=== PATIENT | female | born 1960 | race Caucasian/White ===

== ENCOUNTER → 2017-06-29 | Outpatient (CLI) | payer OTHER ==
[2012-05-02 11:57] VITALS: BP 138/63
--- NOTE | 2017-06-30 16:53 | MG ---
HISTORY: SCREENING Comparison: Multiple priors dating back to December 15, 2010 FINDINGS: Bilateral CC and MLO projections of the right and left breast were obtained. Scattered fibroglandula r tissue is seen to be present without significant interval change. No suspicious architectural dist ortion, mass or clustered microcalcifications can be observed to suggest malignancy. No skin thicken ing or nipple retraction is appreciated. No pathological lymphadenopathy can be identified. Benign- appearing calcifications are noted within the right and left breast. IMPRESSION: NO RADIOGRAPHIC EVIDENCE OF MALIGNANCY. ACR CATEGORY 2 - benign findings. FOLLOW-UP EXAM 1 YEAR. Diagnostic CAD was utilized and reviewed. * 0 (ZERO) - ASSESSMENT INCOMPLETE; ADDITIONAL IMAGING IS NEEDED. * 1/ (ONE) - NEGATIVE. * 2/II (TWO) - BENIGN FINDINGS. * 3/III (THREE) - PROBABLY BENIGN FINDING; SHORT INTERVAL FOLLOW-UP SUGGESTED. * 4/IV (FOUR) - SUSPICIOUS ABNORMALITY; BIOPSY SHOULD BE CONSIDERED. * 5/V - HIGHLY SUSPICIOUS OF MALIGNANCY; BIOPSY SHOULD BE PERFORMED. A NEGATIVE X-RAY REPORT SHOULD NOT DELAY BIOPSY IF A DOMINANT OR CLINICALLY SUSPICIOUS MASS IS PRESENT; 4 TO 8 PERCENT OF CANCERS ARE NOT IDENTIFIED BY X-RAY. A NEGA TIVE REPORT MAY REINFORCE THE CLINICAL IMPRESSION. ADENOSIS AND DENSE BREASTS MAY OBSCURE AN UNDERLY ING NEOPLASM. Reported By:
== END ==
LOC: RAD 13:43
PROVIDERS: ATTEND Specialist
DX: Z12.31 Encounter for screening mammogram for malignant neoplasm of breast (principal)
CPT/HCPCS: 77067

== ENCOUNTER 2020-01-20 12:47 | Inpatient (IN) ==
[2020-01-20 12:56] VITALS: BMI 38.2
--- NOTE | 2020-01-20 13:17 | DR.GENAD ---
HPI Time Seen Time Seen by Provider: 01/20/20 13:09 PCP Primary Care Physician: DR MARTINEZ Complaint/Symptoms Chief Complaint:: PT TESTED POSITVE FOR COVID ON TUESDAY. SINCE THEN SHE HAS HAD SEVERE DIARRHEA AND PROGRESSIVELY WORSENING GENERALIZED WEAKNESS. Self Treatment fo Chief Complaint: PT WAS STARTED ON PLAQUENIL, ZITHROMAX, AND ELIQUIS ON TUESDAY. Source History Provided: Patient Mode of Arrival Mode of Arrival: Ambulatory Timing Onset of Chief Complaint: 01/20/20 PMH PMH Past Medical History: Yes Past Medical History: Migraines Past Surgical History: Yes Surgical History: Ortho Surgery Family History History of Family Medical Conditions: Yes Family Medical History Comment: CVA Social History Does patient currently use any type of tobacco product: No Have you used tobacco products in the last 12 months: No Type of Tobacco Use: None Does any household member use tobacco: No Alcohol Use: None Do you use any recreational Drugs:: No Lives With: Family Lives Where: Home Infectious screening In the last 2 months have you had wt loss of >10#?: NO Have you had fever, night sweats or hemotysis?: No Have you traveled outside the country in the last 6 months?: No Isolation: Standard ROS Review of Systems Constitutional: No Symptoms Reported and See HPI Eyes: No Symptoms Reported and See HPI ENTM: No Symptoms Reported and See HPI Respiratoy: No Symptoms Reported and See HPI Cardiovascular: No Symptoms Reported and See HPI Gastrointestinal/Abdominal: No Symptoms Reported and See HPI Genitourinary: No Symptoms Reported and See HPI Neurological: No Symptoms Reported and See HPI Musculoskeletal: No Symptoms Reported and See HPI Integumentary: No Symptoms Reported and See HPI Hematologic/Lymphatic: No Symptoms Reported and See HPI Endocrine: No Symptoms Reported and See HPI Psychiatric: No Symptoms Reported and See HPI All Other Systems: Reviewed and Negative PE Vital Signs Vitals: Temperature 98.1 F Pulse Rate 94 Respiratory Rate 24 Blood Pressure [Left Arm] 138/63 Blood Pressure 129/68 O2 Sat by Pulse Oximetry 95 General Limitations: No Limitations General Appearance: Alert and In No Apparent Distress Head Head Exam: Normal Inspection Eyes Eye exam: Normal Appearance ENT ENT Exam: Normal Exam External Ear Exam: Normal External Inspection TM/Canal Exam: Bilateral: Normal Nose Exam: Normal Nose Exam Mouth Exam: Normal Inspection Throat Exam: Normal Inspection Neck Neck Exam: Normal Inspection Chest Chest Inspection: Normal Inspection Respiratory Respiratory Exam: Normal Lung Sounds Bilat Respiratory Exam: Bilateral: Clear to Auscultation Cardiovascular Cardiovascular Exam: Regular Rate and Normal Rhythm Abdominal Exam Abdominal Exam: Normal Inspection, Normal Bowel Sounds and Soft Extremities Extremities Exam: Normal Inspection Back Back Exam: Normal Inspection Neurologic Neurological Exam: Alert and Oriented X3 Psychiatric Psychiatric Exam: Normal Affect and Normal Mood Skin Skin Exam: Warm, Dry, Intact and Normal Color MDM Differential Diagnosis Differential Diagnosis: PNEUMONIA. DEHYDRATION, DIRRHEA, GASTROENTERITIS, COVID VIRUS POSITIVE. COURSE Treatment Treatment: SEE ORDERS. NS 1L IV BOLUS. ZOFRAN 4MG IV. Consultation Consultation Comments: DISCUSSED PATIENT WITH DR. TRINIDAD. HE WILL ADMIT PATIENT. Education/Counseling Education/Counseling: Patient Educated On: Diagnosis ROR Labs Reviewed Laboratory Results Reviewed?: Yes Result Diagrams: 01/20/20 13:30 01/20/20 13:30 Laboratory: WBC 6.9 X10^3/uL (3.6-10.0) 01/20/20 13:30 RBC 4.82 X10^6/uL (3.5-5.4) 01/20/20 13:30 Hgb 13.8 g/dL (12.0-16.0) 01/20/20 13:30 Hct 42.7 % (36.0-47.0) 01/20/20 13:30 MCV 88.5 fL (80.0-100.0) 01/20/20 13:30 MCH 28.6 pg (27.0-34.0) 01/20/20 13:30 MCHC 32.4 g/dL (33.0-35.0) L 01/20/20 13:30 RDW 14.3 % (11.6-16.5) 01/20/20 13:30 Plt Count 218 X10^3/uL (150.0-450.0) 01/20/20 13:30 MPV 8.0 fL (7.4-11.0) 01/20/20 13:30 Neut % (Auto) 75.5 % (42.0-75.0) H 01/20/20 13:30 Lymph % (Auto) 14.7 % (21.0-51.0) L 01/20/20 13:30 [place] % (Auto) 9.5 % (0.0-13.0) 01/20/20 13:30 Eos % (Auto) 0.0 % (0.9-2.9) L 01/20/20 13:30 Baso % (Auto) 0.3 % (0.2-1.0) 01/20/20 13:30 Neut # (Auto) 5.2 x10^3/uL (2.2-4.8) H 01/20/20 13:30 Lymph # (Auto) 1.0 X10^3/uL (1.3-2.9) L 01/20/20 13:30 [place] # (Auto) 0.7 x10^3/uL (0.3-0.8) 01/20/20 13:30 Eos # (Auto) 0.0 x10^3/uL (0.0-0.2) 01/20/20 13:30 Baso # (Auto) 0.0 X10^3/uL (0.0-0.1) 01/20/20 13:30 Absolute Nucleated RBC 0.1 /100WBC 01/20/20 13:30 Sample Site Lrad 01/20/20 13:47 ABG pH 7.460 (7.35-7.45) H 01/20/20 13:47 ABG pCO2 40.0 mmHg (35.0-45.0) 01/20/20 13:47 ABG pO2 69.0 mmHg (80.0-100.0) L 01/20/20 13:47 ABG HCO3 28.4 mmol/L (22-26) H 01/20/20 13:47 ABG O2 Saturation 95.0 % (90-100) 01/20/20 13:47 ABG Base Excess 4.2 mmol/L (-2.0-2.0) H 01/20/20 13:47 Alberto Test Pos 01/20/20 13:47 A-a Gradient 31.0 mmHg 01/20/20 13:47 FiO2 21.0 01/20/20 13:47 Blood Gas Comments Pt zak well elj cdn 01/20/20 13:47 Sodium 138 mmol/L (136-145) 01/20/20 13:30 Corrected Sodium TNP 01/20/20 13:30 Potassium 4.1 mmol/L (3.5-5.1) 01/20/20 13:30 Chloride 98 mmol/L (98-107) 01/20/20 13:30 Carbon Dioxide 30.6 mmol/L (21-32) 01/20/20 13:30 BUN 10 mg/dL (7-18) 01/20/20 13:30 Creatinine 0.96 mg/dL (0.55-1.02) 01/20/20 13:30 Est GFR (MDRD) Af Amer > 60 (>60) 01/20/20 13:30 Est GFR (MDRD) Non-Af > 60 (>60) 01/20/20 13:30 Glucose 98 mg/dL (65-99) 01/20/20 13:30 Calcium 8.6 mg/dL (8.5-10.1) 01/20/20 13:30 Corrected Calcium TNP 01/20/20 13:30 Total Bilirubin 0.40 mg/dL (0.2-1.0) 01/20/20 13:30 AST 24 Units/L (15-37) 01/20/20 13:30 ALT 28 Units/L (12-78) 01/20/20 13:30 Alkaline Phosphatase 81 Units/L (46-116) 01/20/20 13:30 Total Protein 7.9 g/dL (6.4-8.2) 01/20/20 13:30 Albumin 3.4 g/dL (3.4-5.0) 01/20/20 13:30 Globulin 4.5 g/dL (2.5-4.5) 01/20/20 13:30 Albumin/Globulin Ratio 0.8 Ratio (1.1-2.1) L 01/20/20 13:30 Amylase 45 Units/L (25-115) 01/20/20 13:30 Lipase 174 Units/L (73-393) 01/20/20 13:30 XRAY XRAY Interpreted by: Radiologist (REPORT NOTED AND DISCUSSED WITH PATIENT.) and Self EKG Rate: 87 [place]: LAD Rhythm: NSR Block: None Hypertrophy: LAE ST: Nonsp Opioid Opioid Risk Tool Age (Jh box if 16-45): No Total: 0 Total Score Risk Category: Low Risk Copyright: [facility] predicting aberrant behaviors Diagnosis Discharge Problem: Vomiting and diarrhea, Acute dehydration Pneumonia Qualifiers: Pneumonia type: due to unspecified organism Laterality: bilateral Lung location: lower lobe of lung Qualified Code(s): J18.9 - Pneumonia, unspecified organism Instructions Forms: Precautions for COVID19 Patient Portal Social Distancing
[2020-01-20] MEDS ORDERED: NS 1000 ML 1,000 ML IV ONE (13:24)
[2020-01-20] MEDS ORDERED: ZOFRAN INJ 4 MG VIAL IVP ONE (13:24)
[2020-01-20] MEDS ORDERED: ZOFRAN INJ 4 MG VIAL ONE (13:26)
[2020-01-20] MEDS ORDERED: NS 1000 ML 1,000 ML ONE (13:26)
[2020-01-20 13:44] LABS: BASOPHILS % (AUTO) 0.3 % (0.2-1.0); HEMATOCRIT 42.7 % (36.0-47.0); HEMOGLOBIN 13.8 g/dL (12.0-16.0); LYMPHOCYTES % (AUTO) 14.7 % (21.0-51.0); MEAN CORPUSCULAR HEMOGLOBIN 28.6 pg (27.0-34.0); MEAN CORPUSCULAR HGB CONC 32.4 g/dL (33.0-35.0); MEAN CORPUSCULAR VOLUME 88.5 fL (80.0-100.0); MONOCYTES # (AUTO) 0.7 x10^3/uL (0.3-0.8); MONOCYTES % (AUTO) 9.5 % (0.0-13.0); NEUTROPHILS # (AUTO) 5.2 x10^3/uL (2.2-4.8); NEUTROPHILS % (AUTO) 75.5 % (42.0-75.0); PLATELET COUNT 218 X10^3/uL (150.0-450.0); RED BLOOD COUNT 4.82 X10^6/uL (3.5-5.4); RED CELL DISTRIBUTION WIDTH 14.3 % (11.6-16.5); WHITE BLOOD COUNT 6.9 X10^3/uL (3.6-10.0)
[2020-01-20 13:55] LABS: ABG ALLEN TEST POS; ABG BASE EXCESS 4.2 mmol/L (-2.0-2.0); ABG HCO3 28.4 mmol/L (22-26)
[2020-01-20 13:57] LABS: ALANINE AMINOTRANSFERASE 28 Units/L (12-78); ALBUMIN 3.4 g/dL (3.4-5.0); ALKALINE PHOSPHATASE 81 Units/L (46-116); AMYLASE 45 Units/L (25-115); ASPARTATE AMINO TRANSFERASE 24 Units/L (15-37); BLOOD UREA NITROGEN 10 mg/dL (7-18); CALCIUM 8.6 mg/dL (8.5-10.1); CARBON DIOXIDE 30.6 mmol/L (21-32); CHLORIDE 98 mmol/L (98-107); CREATININE 0.96 mg/dL (0.55-1.02); LIPASE 174 Units/L (73-393); SODIUM 138 mmol/L (136-145); TOTAL PROTEIN 7.9 g/dL (6.4-8.2); eGFR NON BLACK RACES > 60 (>60)
--- NOTE | 2020-01-20 14:18 | RAD ---
HISTORYAbd. pain PT TESTED POSITVE FOR COVID ON TUESDAY. SINCE THEN SHE HAS HAD SEVERE DIARRHEA AND PROGRESSIVELY WORSENING GENERALIZED WEAKNESS..brOrtho sxSTUDYACUTE ABDOMEN SERIESCOMPARISONNoneFINDINGSThe left ventricle is mildly enlarged. The pulmonary vessels are slightly engorged centrally. The lungs are hypoinflated with some hazy bibasilar linear opacities. No effusion is seen.Flat plate and upright evaluation of the abdomen demonstrates a [normal bowel gas pattern]. There is no pneumoperitoneum. No pathological soft tissue mass or calcification can be observed. The bony structures are grossly intact. There are surgical clips along the right upper quadrant. There is no free air.IMPRESSIONMild left ventricular enlargement with mild bibasilar atelectasis or scarring.Status post cholecystectomy with a nonspecific gas pattern.2. [No evidence for acute abdominal pathology identified.]Electronically signed by: AFRICA MARTINO (Jan 20, 2020 14:17:06)
[2020-01-20 16:04] LABS: APPEARANCE,URINE SLIGHTLY HAZY (CLEAR); BILIRUBIN,URINE NEGATIVE (NEGATIVE); BLOOD/HEMOGLOBIN,URINE 1+ (NEGATIVE); COLOR,URINE YELLOW (YELLOW); GLUCOSE, URINE NEGATIVE (NEGATIVE); KETONES,URINE NEGATIVE (NEGATIVE); NITRITES,URINE NEGATIVE (NEGATIVE); PROTEIN,URINE NEGATIVE (NEGATIVE)
[2020-01-20 16:05] LABS: BACTERIA,URINE 2+ /HPF (NEGATIVE); LEUKOCYTE ESTERASE ,URINE NEGATIVE (NEGATIVE); RBC,URINE 0-2 /HPF (0-3); SQUAMOUS EPITHELIAL CELL,UR RARE /HPF (NEGATIVE); UROBILINOGEN,URINE NORMAL (NORMAL)
[2020-01-20] MEDS ORDERED: REMDESIVIR 200 MG in NS 250 ML IV 250 ML IV SCH (16:11)
[2020-01-20] MEDS: NS 1000 ML 1,000 ML IV SCH (16:21)
[2020-01-20 16:29] LABS: LACTIC ACID 0.7 mmol/L (0.4-2.0)
[2020-01-20] MEDS ORDERED: DUONEB 0.5 MG/3 MG (3 mL) NEB ONE (19:26)
[2020-01-20] MEDS ORDERED: PULMICORT NEB TX 0.5 MG NEB ONE (19:27)
[2020-01-20] MEDS ORDERED: LOVENOX INJ 30 MG SYR SC SCH (21:00)
[2020-01-20] MEDS: ASCORBIC ACID INJ MULTI-DOSE VIAL 1,500 MG in NS 100 ML IV 100 ML IV SCH (21:00)
[2020-01-20] MEDS ORDERED: PLAQUENIL PO SCH (21:00)
[2020-01-20] MEDS: ZINC SULFATE PO SCH (21:00)
[2020-01-20] MEDS: DUONEB 0.5 MG/3 MG (3 mL) NEB SCH (21:25)
[2020-01-20] MEDS: PULMICORT NEB TX 0.5 MG NEB SCH (21:25)
[2020-01-20] MEDS ORDERED: CATAPRES TAB 0.1 MG ONE (21:46)
[2020-01-20] MEDS ORDERED: ELIQUIS ONE (21:46)
[2020-01-20] MEDS: CATAPRES TAB 0.1 MG PO SCH (22:30)
[2020-01-20] MEDS: ELIQUIS PO SCH (22:30)
[2020-01-21] MEDS: ASCORBIC ACID INJ MULTI-DOSE VIAL 1,500 MG in NS 100 ML IV 100 ML IV SCH (03:13)
[2020-01-21 04:15] LABS: ABG ALLEN TEST POS; ABG BASE EXCESS 5.3 mmol/L (-2.0-2.0); ABG HCO3 29.9 mmol/L (22-26)
[2020-01-21] MEDS: DUONEB 0.5 MG/3 MG (3 mL) NEB SCH ×3 (05:13→21:00)
[2020-01-21 05:24] LABS: BASOPHILS % (AUTO) 0.3 % (0.2-1.0); HEMATOCRIT 37.6 % (36.0-47.0); HEMOGLOBIN 12.3 g/dL (12.0-16.0); LYMPHOCYTES # (AUTO) 1.5 X10^3/uL (1.3-2.9); LYMPHOCYTES % (AUTO) 19.9 % (21.0-51.0); MEAN CORPUSCULAR HEMOGLOBIN 28.8 pg (27.0-34.0); MEAN CORPUSCULAR HGB CONC 32.7 g/dL (33.0-35.0); MEAN CORPUSCULAR VOLUME 88.1 fL (80.0-100.0); MEAN PLATELET VOLUME 8.4 fL (7.4-11.0); MONOCYTES # (AUTO) 0.7 x10^3/uL (0.3-0.8); MONOCYTES % (AUTO) 9.1 % (0.0-13.0); NEUTROPHILS # (AUTO) 5.2 x10^3/uL (2.2-4.8); NEUTROPHILS % (AUTO) 70.7 % (42.0-75.0); PLATELET COUNT 210 X10^3/uL (150.0-450.0); RED BLOOD COUNT 4.27 X10^6/uL (3.5-5.4); RED CELL DISTRIBUTION WIDTH 14.5 % (11.6-16.5); WHITE BLOOD COUNT 7.3 X10^3/uL (3.6-10.0)
[2020-01-21 05:37] LABS: ALANINE AMINOTRANSFERASE 27 Units/L (12-78); ALKALINE PHOSPHATASE 68 Units/L (46-116); ASPARTATE AMINO TRANSFERASE 22 Units/L (15-37); BLOOD UREA NITROGEN 8 mg/dL (7-18); CALCIUM 8.2 mg/dL (8.5-10.1); CARBON DIOXIDE 27.9 mmol/L (21-32); CHLORIDE 100 mmol/L (98-107); COR NA(FOR HYPERGLY) 135 mmol/L (136-145); CREATININE 0.75 mg/dL (0.55-1.02); SODIUM 135 mmol/L (136-145); TOTAL PROTEIN 7.1 g/dL (6.4-8.2); eGFR NON BLACK RACES > 60 (>60)
[2020-01-21 05:53] LABS: ERYTHROCYTE SEDIMENTATION RATE 44 MM/HOUR (0-20)
--- NOTE | 2020-01-21 06:13 | RAD ---
[id number], SOBSTUDYCHEST, 1 VIEWCOMPARISONNoneFINDINGSThe trachea is midline. The cardiac silhouette is mildly enlarged.. Patchy bibasilar infiltrates. The upper lung handley are clear. No pleural effusion or pneumothorax. The bony thorax be.IMPRESSIONPatchy bibasilar infiltrates consistent with multifocal pneumoniaElectronically signed by: Curtis Paredes (Jan 21, 2020 06:11:34)
[2020-01-21] MEDS: NS 1000 ML 1,000 ML IV SCH ×2 (06:21→15:31)
[2020-01-21] MEDS: PULMICORT NEB TX 0.5 MG NEB SCH ×2 (08:05→21:00)
[2020-01-21] MEDS ORDERED: ZOFRAN INJ 4 MG VIAL ONE (08:17)
[2020-01-21] MEDS: ZOFRAN INJ 4 MG VIAL IVP PRN ×2 (08:35→20:59)
--- NOTE | 2020-01-21 08:42 | DR.H&P ---
H&P - History & Physical for Day of: H&P Date: 01/20/20 - Chief Complaint Chief Complaint: WEAKNESS, SOB, NAUSEA, DIARRHEA - History of Present Illness History of Present Illness: IS A 59 YEAR OLD PATIENT OF OURS. SHE PRESENTED TO THE ER WITH COMPLAINTS OF SEVERE WEAKNESS, SHORTNESS OF BREATH, NAUSEA, AND DIARRHEA X 1 WEEK. SHE HAD A POSITIVE COVID-19 TEST ON 01/15/20. SHE WAS STARTED ON PLAQUENIL, ZITHROMAX, AND ELIQUIS ON 01/14. SHE REPORTS WORSENING OF SYMPTOMS DESPITE COMPLIANCE WITH HER MEDICATIONS. HER PMH INCLUDES MIGRAINES, HTN, DYSLIPIDEMIA, AND DEPRESSION. ON ARRIVAL TO THE ER, VITALS WERE 98.1-109-24-91%RA-123/81. LABS WERE OBTAINED. ABNORMAL LAB VALUES INCLUDE THE FOLLOWING: FERRITIN 264, CRP 32.0. URINALYSIS REVEALED: WBC 0-2, RBC 0-2, LEUKOCYTES NEGATIVE, BACTERIA 2+, OCCULT BLOOD 1+. ABG REVEALED: PH 7.460, PC02 40.0, P02 69, HC03 28.4, 02 SAT 95.0, BASE EXCESS 4.2, FI02 21.0. URINE AND BLOOD CULTURES ARE PENDING. AN ABDOMINAL SERIES WAS OBTAINED AND REVEALED: Mild left ventricular enlargement with mild bibasilar atelectasis or scarring. Status post cholecystectomy with a nonspecific gas pattern. 2. No evidence for acute abdominal pathology identified. EKG REVEALED: SINUS RHYTHM WITH HR 87. SHE WAS GIVEN A NORMAL SALINE BOLUS, ZOFRAN 4MG IV X 1, AND REMDESIVIR 200MG IV X 1 DOSE IN THE ER. SHE WAS ADMITTED FOR FURTHER EVALUATION AND TREATMENT OF PNEUMONIA DUE TO COVID-19, NAUSEA/VOMITING, AND DIARRHEA. SHE WAS STARTED ON REMDESIVIR 100MG IV DAILY, LEVAQUIN 500MG IV DAILY, SOLU-MEDROL 40MG IV Q8H, ZOFRAN 4MG IV Q6H PRN, VSL #3 2 TABS DAILY, DUONEBS TID, PULMICORT NEBS BID, TRICOR 160MG PO DAILY, ZINC 220MG PO BID, ELIQUIS 2.5MG PO BID, CATAPRES 0.1MG PO HS, VITAMIN D 50,000 UNITS PO DAILY. OTHERWISE, WE PLAN TO FOLLOW UP WITH AM LABS, CHEST XRAY, ABG, AND CONTINUE TO MONITOR. - Past Medical History Past Medical History: Depression, Dyslipidemia, Migraines, Hypertension - Past Surgical History Surgical History: Cholecystectomy, Ortho Surgery - Family History Family Medical History: Cancer, [place] - Social History Does patient currently use any type of tobacco product: No Have you used tobacco products in the last 12 months: No Type of Tobacco Use: None Does any household member use tobacco: No Alcohol Use: None Drug Use: None - Medications Home Medications: codeine Allergy (Verified 01/20/20 15:07) CONTINUE taking the following medications apixaban [Eliquis] 2.5 mg PO BID 01/20/20 [History] clonidine HCl 0.1 mg PO HS 01/20/20 [History] hydroxychloroquine 200 mg PO BID 01/20/20 [History] lisinopril 2.5 mg PO DAILY 01/20/20 [History] methylprednisolone 4 mg PO BID 01/20/20 [History] oxybutynin chloride 15 mg PO DAILY 01/20/20 [History] rosuvastatin 10 mg PO HS 01/20/20 [History] venlafaxine 75 mg PO QAM 01/20/20 [History] - Review of Systems Constitutional: Weakness Eyes: No Symptoms Reported ENT: No Symptoms Reported Respiratory: Shortness of Breath Cardiovascular: No Symptoms Reported Gastrointestinal: Nausea, Vomiting, Diarrhea Genitourinary: No Symptoms Reported Musculoskeletal: No Symptoms Reported Skin: No Symptoms Reported Neurological: Weakness - Physical Exam Vital Signs: Temperature 98.5 F Pulse Rate [Apical] 112 Pulse Rate 97 Respiratory Rate 22 Blood Pressure [Left Arm] 112/60 Blood Pressure 129/68 O2 Sat by Pulse Oximetry 95 Oriented: Normal Eyes: Normal Ear: Normal Nose: Normal Throat: Normal Respiratory: Diminished Throughout Cardiovascular: Normal : Normal Auscultation: Bowel Sounds: Normal Palpation: Normal Tenderness: Normal Skin: Normal Musculoskeletal: Normal Psychiatric: Normal Mood Description: Calm Affect: Normal Speech Pattern: Clear - Assessment/Plan (1) Pneumonia due to 2019 novel coronavirus Status: Acute Plan: ADMIT, SUPPLEMENTAL OXYGEN, REMDESIVIR 100MG IV DAILY, LEVAQUIN 500MG IV DAILY, SOLU-MEDROL 40MG IV Q8H, ZOFRAN 4MG IV Q6H PRN, VSL #3 2 TABS DAILY, DUONEBS TID, PULMICORT NEBS BID, TRICOR 160MG PO DAILY, ZINC 220MG PO BID, ELIQUIS 2.5MG PO BID, CATAPRES 0.1MG PO HS, VITAMIN D 50,000 UNITS PO DAILY. (2) Vomiting and diarrhea Status: Acute - Allergies Allergies/Adverse Reactions: Allergies Allergy/AdvReac Type Severity Reaction Status Date / Time codeine Allergy Verified 01/20/20 15:07
[2020-01-21] MEDS: ELIQUIS PO SCH ×2 (08:52→20:58)
[2020-01-21] MEDS: ZINC SULFATE PO SCH ×2 (08:53→21:00)
[2020-01-21] MEDS: VSL#3 PO SCH (08:53)
[2020-01-21] MEDS: REMDESIVIR 100 MG in NS 250 ML IV 250 ML IV SCH (08:53)
[2020-01-21] MEDS: TRICOR TAB 160 MG PO SCH (08:54)
[2020-01-21] MEDS: SOLU-Medrol 40 MG VIAL IVP SCH ×3 (08:54→21:00)
[2020-01-21] MEDS ORDERED: VITAMIN D (1.25MG) PO SCH (09:00)
[2020-01-21] MEDS ORDERED: VITAMIN A PO SCH (09:00)
[2020-01-21] MEDS ORDERED: DECADRON TAB PO SCH (09:00)
[2020-01-21] MEDS: LEVAQUIN PREMIX IV 500 MG 500 MG/100 ML BAG IV SCH (10:08)
[2020-01-21] MEDS ORDERED: K-RIDER 10 MEQ/NS 100 ML 10 MEQ/100 ML BAG IV PRN (20:16)
[2020-01-21] MEDS ORDERED: KLOR-CON PO PRN (20:16)
[2020-01-21] MEDS ORDERED: POTASSIUM CHLORIDE LIQ 20 MEQ UDC PO PRN (20:16)
[2020-01-21] MEDS ORDERED: POTASSIUM CHL 60 MEQ/NS 0.45% 500 ML IV PRN (20:16)
[2020-01-21] MEDS ORDERED: K-DUR TAB 20 MEQ PO PRN (20:16)
[2020-01-21] MEDS ORDERED: POTASSIUM CHL 40 MEQ/NS 0.45% 500 ML IV PRN (20:16)
[2020-01-21] MEDS ORDERED: MICRO K EXTEN CAP 10 MEQ PO PRN (20:16)
[2020-01-21] MEDS ORDERED: MAGNESIUM SULFATE 1 GRAM/100 mL PREMIX 1 GM/100 ML BAG IV PRN (20:16)
[2020-01-21] MEDS: CATAPRES TAB 0.1 MG PO SCH (20:58)
[2020-01-21] MEDS ORDERED: CATAPRES TAB 0.1 MG PO SCH (21:00)
[2020-01-22] MEDS: ZOFRAN INJ 4 MG VIAL IVP PRN ×5 (04:30→22:32)
[2020-01-22 05:18] LABS: BASOPHILS % (AUTO) 0.2 % (0.2-1.0); HEMATOCRIT 38.6 % (36.0-47.0); HEMOGLOBIN 12.8 g/dL (12.0-16.0); LYMPHOCYTES # (AUTO) 0.8 X10^3/uL (1.3-2.9); LYMPHOCYTES % (AUTO) 18.2 % (21.0-51.0); MEAN CORPUSCULAR HEMOGLOBIN 29.1 pg (27.0-34.0); MEAN CORPUSCULAR HGB CONC 33.2 g/dL (33.0-35.0); MEAN CORPUSCULAR VOLUME 87.6 fL (80.0-100.0); MEAN PLATELET VOLUME 7.6 fL (7.4-11.0); MONOCYTES # (AUTO) 0.2 x10^3/uL (0.3-0.8); MONOCYTES % (AUTO) 5.7 % (0.0-13.0); NEUTROPHILS # (AUTO) 3.2 x10^3/uL (2.2-4.8); NEUTROPHILS % (AUTO) 75.9 % (42.0-75.0); PLATELET COUNT 230 X10^3/uL (150.0-450.0); RED BLOOD COUNT 4.41 X10^6/uL (3.5-5.4); RED CELL DISTRIBUTION WIDTH 14.5 % (11.6-16.5); WHITE BLOOD COUNT 4.2 X10^3/uL (3.6-10.0)
[2020-01-22 05:32] LABS: ALANINE AMINOTRANSFERASE 26 Units/L (12-78); ALKALINE PHOSPHATASE 68 Units/L (46-116); ASPARTATE AMINO TRANSFERASE 19 Units/L (15-37); BLOOD UREA NITROGEN 8 mg/dL (7-18); CALCIUM 8.8 mg/dL (8.5-10.1); CARBON DIOXIDE 31.2 mmol/L (21-32); CHLORIDE 103 mmol/L (98-107); COR CA(FOR HYPOALB) 9.6 mg/dL (8.5-10.1); COR NA(FOR HYPERGLY) 142 mmol/L (136-145); MAGNESIUM 2.3 mg/dL (1.7-2.9); SODIUM 139 mmol/L (136-145); TOTAL PROTEIN 7.2 g/dL (6.4-8.2); eGFR NON BLACK RACES > 60 (>60)
[2020-01-22] MEDS: SOLU-Medrol 40 MG VIAL IVP SCH ×3 (05:39→21:08)
[2020-01-22] MEDS: DUONEB 0.5 MG/3 MG (3 mL) NEB SCH ×3 (05:40→21:15)
--- NOTE | 2020-01-22 06:21 | RAD ---
HISTORYCOVID, SOBSTUDYCHEST, 1 [id number] view of the chestFINDINGSCardiac and mediastinal contours appear stable. Stable basilar predominant patchy opacities. Blunted costophrenic sulci are present. No pneumothorax.IMPRESSIONNo significant change.Electronically signed by: Bradly Palmer (Jan 22, 2020 06:19:38)
[2020-01-22] MEDS: ELIQUIS PO SCH ×2 (08:28→20:08)
[2020-01-22] MEDS: TRICOR TAB 160 MG PO SCH (08:29)
[2020-01-22] MEDS: VITAMIN D3 125 mcg (5,000 UNITS) PO SCH (08:29)
[2020-01-22] MEDS: LEVAQUIN PREMIX IV 500 MG 500 MG/100 ML BAG IV SCH (08:29)
[2020-01-22] MEDS: VSL#3 PO SCH (08:29)
[2020-01-22] MEDS: ZINC SULFATE PO SCH ×2 (08:30→21:00)
[2020-01-22] MEDS ORDERED: TYLENOL 325 MG TAB PO ONE (08:55)
[2020-01-22] MEDS: PULMICORT NEB TX 0.5 MG NEB SCH ×2 (08:58→21:15)
[2020-01-22] MEDS: TYLENOL 325 MG TAB PO PRN (08:59)
[2020-01-22] MEDS ORDERED: FORTAZ or TAZICEF VIAL INJ 1 G in NS 100 ML IV + SPIKE MINIBAG* 100 ML IV SCH (09:00)
[2020-01-22] MEDS ORDERED: VITAMIN A PO SCH (09:00)
[2020-01-22] MEDS ORDERED: INDERAL TAB 10 MG PO SCH (10:00)
[2020-01-22] MEDS: REMDESIVIR 100 MG in NS 250 ML IV 250 ML IV SCH (10:32)
[2020-01-22] MEDS: ZESTRIL TAB 5 MG PO SCH (10:32)
[2020-01-22] MEDS: PATIENT'S HOME MEDICATION PO SCH ×2 (10:46→20:09)
[2020-01-22] MEDS: FORTAZ or TAZICEF VIAL INJ 1 G in NS 50 ML IV + SPIKE MINIBAG* 50 ML IV SCH ×2 (14:10→21:07)
[2020-01-22] MEDS: TORADOL 30 MG VIAL IVP PRN ×2 (14:39→20:09)
--- NOTE | 2020-01-22 19:07 | PCM.PROG ---
Progress Note - Progress Note for Day of Date of Exam: 01/22/20 - Subjective Subjective: IS BEING TREATED FOR PNEUMONIA DUE TO COVID-19 AND NAUSEA/VOMITING. TODAY, SHE IS ALERT AND ORIENTED, LYING IN BED ON MORNING ROUNDS. SHE CONTINUES WITH COMPLAINTS OF WEAKNESS AND NAUSEA THIS MORNING. SHE DOES REPORT SHORTNESS OF BREATH AT TIMES. SHE IS CURRENTLY UTILIZING OXYGEN VIA NASAL CANNULA AT 2 LITERS/MIN. SHE DENIES SIGNIFICANT IMPROVEMENT IN SYMPTOMS SINCE ADMISSION. ON EXAMINATION, HEART IS REGULAR IN RATE AND RHYTHM. BILATERAL LUNGS ARE NOTED WITH DIMINISHED LUNG SOUNDS THROUGHOUT. ABDOMEN IS ROUND, SOFT, AND NON-TENDER WITH NORMAL BOWEL SOUNDS NOTED IN ALL QUADRANTS. HER VITALS THIS MORNING ARE: 97.8-96-25-95%NC-136/62. LABS WERE OBTAINED. ABNORMAL LAB VALUES IN CLUDE THE FOLLOWING: GLUCOSE 238, FERRITIN 305, CRP 45.50, ALBUMIN 3.0. CHEST XRAY REVEALED: Cardiac and mediastinal contours appear stable. Stable basilar predominant patchy opacities. Blunted costophrenic sulci are present. No pneumothorax. SHE IS CURRENTLY RECEIVING REMDESIVIR 100MG IV DAILY, LEVAQUIN 500MG IV DAILY, SOLU-MEDROL 40MG IV Q8H, ZOFRAN 4MG IV Q6H PRN, VSL #3 2 TABS DAILY, DUONEBS TID, PULMICORT NEBS BID, TRICOR 160MG PO DAILY, ZINC 220MG PO BID, ELIQUIS 2.5MG PO BID, CATAPRES 0.1MG PO HS, VITAMIN D 50,000 UNITS PO DAILY. WE WILL RESUME HER HOME MEDICATIONS TODAY. OTHERWISE, WE PLAN TO FOLLOW UP WITH AM LABS, CHEST XRAY, AND CONTINUE TO MONITOR. - Past Medical Family Social History Past Med/Fam/Surg Hx: No changes since H&P Allergies: Allergies codeine Allergy (Verified 01/20/20 15:07) - Review of Systems ROS: No change since H&P - Vital Signs and I&O's Vital Signs: Temperature 97.5 F Pulse Rate [Apical] 78 Pulse Rate 84 Respiratory Rate 20 Blood Pressure [Left Arm] 138/63 Blood Pressure 129/68 O2 Sat by Pulse Oximetry 97 Intake and Output: Intake & Output 01/20/20 01/21/20 01/22/20 01/23/20 11:59 11:59 11:59 11:59 Intake Total 1945 1123 / 1123 Balance 1945 1123 / 1123 - Physical Exam Oriented: Normal Eyes: Normal Ear: Normal Nose: Normal Throat: Normal Respiratory: Generalized, Diminished Cardiovascular: Normal : Normal Auscultation: Bowel Sounds: Normal Palpation: Normal Tenderness: Normal Skin: Normal Musculoskeletal: Normal Psychiatric: Normal Mood Description: Calm Affect: Normal Speech Pattern: Clear - Laboratory and Diagnostics Result Diagrams: 01/22/20 04:53 01/22/20 04:53 Labs: 01/20/20 15:55 Blood Blood Culture - Preliminary 01/20/20 15:49 Blood Blood Culture - Preliminary 01/20/20 15:12 Urine,Clean Catch Urine Culture - Preliminary Escherichia Coli Laboratory WBC 4.2 X10^3/uL (3.6-10.0) 01/22/20 04:53 RBC 4.41 X10^6/uL (3.5-5.4) 01/22/20 04:53 Hgb 12.8 g/dL (12.0-16.0) 01/22/20 04:53 Hct 38.6 % (36.0-47.0) 01/22/20 04:53 MCV 87.6 fL (80.0-100.0) 01/22/20 04:53 MCH 29.1 pg (27.0-34.0) 01/22/20 04:53 MCHC 33.2 g/dL (33.0-35.0) 01/22/20 04:53 RDW 14.5 % (11.6-16.5) 01/22/20 04:53 Plt Count 230 X10^3/uL (150.0-450.0) 01/22/20 04:53 MPV 7.6 fL (7.4-11.0) 01/22/20 04:53 Neut % (Auto) 75.9 % (42.0-75.0) H 01/22/20 04:53 Lymph % (Auto) 18.2 % (21.0-51.0) L 01/22/20 04:53 [place] % (Auto) 5.7 % (0.0-13.0) 01/22/20 04:53 Eos % (Auto) 0.0 % (0.9-2.9) L 01/22/20 04:53 Baso % (Auto) 0.2 % (0.2-1.0) 01/22/20 04:53 Neut # (Auto) 3.2 x10^3/uL (2.2-4.8) 01/22/20 04:53 Lymph # (Auto) 0.8 X10^3/uL (1.3-2.9) L 01/22/20 04:53 [place] # (Auto) 0.2 x10^3/uL (0.3-0.8) L 01/22/20 04:53 Eos # (Auto) 0.0 x10^3/uL (0.0-0.2) 01/22/20 04:53 Baso # (Auto) 0.0 X10^3/uL (0.0-0.1) 01/22/20 04:53 Absolute Nucleated RBC 0.0 /100WBC 01/22/20 04:53 ESR 44 MM/HOUR (0-20) H 01/21/20 04:26 Sample Site Rr 01/21/20 04:08 ABG pH 7.450 (7.35-7.45) 01/21/20 04:08 ABG pCO2 43.0 mmHg (35.0-45.0) 01/21/20 04:08 ABG pO2 68.0 mmHg (80.0-100.0) L 01/21/20 04:08 ABG HCO3 29.9 mmol/L (22-26) H 01/21/20 04:08 ABG O2 Saturation 94.0 % (90-100) 01/21/20 04:08 ABG Base Excess 5.3 mmol/L (-2.0-2.0) H 01/21/20 04:08 Alberto Test Pos 01/21/20 04:08 A-a Gradient 78.0 mmHg 01/21/20 04:08 FiO2 28.0 01/21/20 04:08 Blood Gas Comments Danika well ae 01/21/20 04:08 Sodium 139 mmol/L (136-145) 01/22/20 04:53 Corrected Sodium 142 mmol/L (136-145) 01/22/20 04:53 Potassium 4.4 mmol/L (3.5-5.1) 01/22/20 04:53 Chloride 103 mmol/L (98-107) 01/22/20 04:53 Carbon Dioxide 31.2 mmol/L (21-32) 01/22/20 04:53 BUN 8 mg/dL (7-18) 01/22/20 04:53 Creatinine 0.80 mg/dL (0.55-1.02) 01/22/20 04:53 Est GFR (MDRD) Af Amer > 60 (>60) 01/22/20 04:53 Est GFR (MDRD) Non-Af > 60 (>60) 01/22/20 04:53 Glucose 238 mg/dL (65-99) H 01/22/20 04:53 Lactic Acid 0.7 mmol/L (0.4-2.0) 01/20/20 15:49 Calcium 8.8 mg/dL (8.5-10.1) 01/22/20 04:53 Corrected Calcium 9.6 mg/dL (8.5-10.1) 01/22/20 04:53 Magnesium 2.3 mg/dL (1.7-2.9) 01/22/20 04:53 Ferritin 305 ng/mL (8-252) H 01/22/20 04:53 Total Bilirubin 0.20 mg/dL (0.2-1.0) 01/22/20 04:53 AST 19 Units/L (15-37) 01/22/20 04:53 ALT 26 Units/L (12-78) 01/22/20 04:53 Alkaline Phosphatase 68 Units/L (46-116) 01/22/20 04:53 C-Reactive Protein 45.50 mg/L (0-3.0) H 01/22/20 04:53 Total Protein 7.2 g/dL (6.4-8.2) 01/22/20 04:53 Albumin 3.0 g/dL (3.4-5.0) L 01/22/20 04:53 Globulin 4.2 g/dL (2.5-4.5) 01/22/20 04:53 Albumin/Globulin Ratio 0.7 Ratio (1.1-2.1) L 01/22/20 04:53 Amylase 45 Units/L (25-115) 01/20/20 13:30 Lipase 174 Units/L (73-393) 01/20/20 13:30 Specimen Type Clean catch urine 01/20/20 15:12 Urine Color Yellow (YELLOW) 01/20/20 15:12 Urine Appearance Slightly hazy (CLEAR) 01/20/20 15:12 Urine pH 6.0 (5.0 - 8.0) 01/20/20 15:12 Ur Specific [place] 1.010 (1.000-1.030) 01/20/20 15:12 Urine Protein Negative (NEGATIVE) 01/20/20 15:12 Urine Glucose (UA) Negative (NEGATIVE) 01/20/20 15:12 Urine Ketones Negative (NEGATIVE) 01/20/20 15:12 Urine Occult Blood 1+ (NEGATIVE) 01/20/20 15:12 Urine Nitrite Negative (NEGATIVE) 01/20/20 15:12 Urine Bilirubin Negative (NEGATIVE) 01/20/20 15:12 Urine Urobilinogen Normal (NORMAL) 01/20/20 15:12 Ur Leukocyte Esterase Negative (NEGATIVE) 01/20/20 15:12 Urine RBC 0-2 /HPF (0-3) 01/20/20 15:12 Urine WBC 0-2 /HPF (0-5) 01/20/20 15:12 Ur Squamous Epith Cells Rare /HPF (NEGATIVE) 01/20/20 15:12 Urine Bacteria 2+ /HPF (NEGATIVE) 01/20/20 15:12 Ur Culture Indicated? Yes/culture set up 01/20/20 15:12 - Plan (1) Pneumonia due to 2019 novel coronavirus Status: Acute Plan: SUPPLEMENTAL OXYGEN, REMDESIVIR 100MG IV DAILY, LEVAQUIN 500MG IV DAILY, SOLU-MEDROL 40MG IV Q8H, ZOFRAN 4MG IV Q6H PRN, VSL #3 2 TABS DAILY, DUONEBS TID, PULMICORT NEBS BID, TRICOR 160MG PO DAILY, ZINC 220MG PO BID, ELIQUIS 2.5MG PO BID, CATAPRES 0.1MG PO HS, VITAMIN D 50,000 UNITS PO DAILY. (2) Vomiting and diarrhea Status: Acute
[2020-01-22] MEDS: CATAPRES TAB 0.1 MG PO SCH (20:08)
[2020-01-22] MEDS: CRESTOR TAB 10 MG PO SCH (20:08)
[2020-01-23] MEDS: TORADOL 30 MG VIAL IVP PRN ×4 (03:15→21:36)
[2020-01-23] MEDS: ZOFRAN INJ 4 MG VIAL IVP PRN ×3 (03:15→20:00)
[2020-01-23 05:39] LABS: BASOPHILS % (AUTO) 0.1 % (0.2-1.0); HEMATOCRIT 36.7 % (36.0-47.0); HEMOGLOBIN 11.9 g/dL (12.0-16.0); LYMPHOCYTES # (AUTO) 1.3 X10^3/uL (1.3-2.9); LYMPHOCYTES % (AUTO) 9.9 % (21.0-51.0); MEAN CORPUSCULAR HEMOGLOBIN 28.5 pg (27.0-34.0); MEAN CORPUSCULAR HGB CONC 32.6 g/dL (33.0-35.0); MEAN CORPUSCULAR VOLUME 87.6 fL (80.0-100.0); MEAN PLATELET VOLUME 8.4 fL (7.4-11.0); MONOCYTES # (AUTO) 0.8 x10^3/uL (0.3-0.8); MONOCYTES % (AUTO) 6.4 % (0.0-13.0); NEUTROPHILS # (AUTO) 10.9 x10^3/uL (2.2-4.8); NEUTROPHILS % (AUTO) 83.6 % (42.0-75.0); PLATELET COUNT 286 X10^3/uL (150.0-450.0); RED BLOOD COUNT 4.19 X10^6/uL (3.5-5.4); RED CELL DISTRIBUTION WIDTH 14.2 % (11.6-16.5)
[2020-01-23] MEDS: SOLU-Medrol 40 MG VIAL IVP SCH ×3 (05:52→21:35)
[2020-01-23] MEDS: FORTAZ or TAZICEF VIAL INJ 1 G in NS 50 ML IV + SPIKE MINIBAG* 50 ML IV SCH ×3 (05:52→21:35)
[2020-01-23 05:58] LABS: ALANINE AMINOTRANSFERASE 25 Units/L (12-78); ALBUMIN 2.8 g/dL (3.4-5.0); ALKALINE PHOSPHATASE 54 Units/L (46-116); ASPARTATE AMINO TRANSFERASE 13 Units/L (15-37); BLOOD UREA NITROGEN 13 mg/dL (7-18); CALCIUM 8.8 mg/dL (8.5-10.1); CHLORIDE 104 mmol/L (98-107); COR CA(FOR HYPOALB) 9.8 mg/dL (8.5-10.1); COR NA(FOR HYPERGLY) 142 mmol/L (136-145); CREATININE 0.75 mg/dL (0.55-1.02); SODIUM 140 mmol/L (136-145); TOTAL PROTEIN 6.8 g/dL (6.4-8.2); eGFR NON BLACK RACES > 60 (>60)
[2020-01-23] MEDS: DUONEB 0.5 MG/3 MG (3 mL) NEB SCH ×3 (06:35→21:07)
--- NOTE | 2020-01-23 06:56 | RAD ---
HISTORYCOVID, SOBSTUDYCHEST, 1 [id number] trachea is midline. The cardiac silhouette is unremarkable. Bibasilar patchy opacities. The upper lung handley are clear. No pleural effusion or pneumothorax.. The bony thorax is unremarkable.IMPRESSIONBibasilar patchy opacities/infiltrates unchanged from 01/22/2020Electronically signed by: Curtis Paredes (Jan 23, 2020 06:55:28)
[2020-01-23] MEDS: EFFEXOR XR 75 MG CAP 24-HR PO SCH (08:41)
[2020-01-23] MEDS: ELIQUIS PO SCH ×2 (08:42→21:34)
[2020-01-23] MEDS: LEVAQUIN PREMIX IV 500 MG 500 MG/100 ML BAG IV SCH (08:43)
[2020-01-23] MEDS: OXYBUTYNIN CHLORIDE ER PO SCH (08:43)
[2020-01-23] MEDS: VSL#3 PO SCH (08:44)
[2020-01-23] MEDS: VITAMIN D3 125 mcg (5,000 UNITS) PO SCH (08:44)
[2020-01-23] MEDS: TRICOR TAB 160 MG PO SCH (08:44)
[2020-01-23] MEDS: ZESTRIL TAB 5 MG PO SCH (08:45)
[2020-01-23] MEDS: ZINC SULFATE PO SCH ×2 (08:45→21:35)
[2020-01-23] MEDS: PATIENT'S HOME MEDICATION PO SCH ×2 (09:05→21:35)
[2020-01-23] MEDS: PULMICORT NEB TX 0.5 MG NEB SCH ×2 (09:13→21:07)
[2020-01-23] MEDS: REMDESIVIR 100 MG in NS 250 ML IV 250 ML IV SCH (10:47)
[2020-01-23 10:49] LABS: BILIRUBIN,URINE NEGATIVE (NEGATIVE); BLOOD/HEMOGLOBIN,URINE 4+ (NEGATIVE); GLUCOSE, URINE 4+ (NEGATIVE); KETONES,URINE NEGATIVE (NEGATIVE); LEUKOCYTE ESTERASE ,URINE NEGATIVE (NEGATIVE); NITRITES,URINE NEGATIVE (NEGATIVE); PROTEIN,URINE 1+ (NEGATIVE); UROBILINOGEN,URINE NORMAL (NORMAL)
[2020-01-23 10:58] LABS: COLOR,URINE YELLOW (YELLOW)
[2020-01-23 10:59] LABS: APPEARANCE,URINE CLEAR (CLEAR); BACTERIA,URINE TRACE /HPF (NEGATIVE); MUCUS,URINE RARE /HPF (NEGATIVE); SQUAMOUS EPITHELIAL CELL,UR NEGATIVE /HPF (NEGATIVE)
[2020-01-23] MEDS: TYLENOL 325 MG TAB PO PRN (11:15)
[2020-01-23] MEDS: PYRIDIUM PO SCH ×2 (12:11→17:11)
[2020-01-23] MEDS: MILK OF MAGNESIA PO SCH ×2 (12:54→21:35)
--- NOTE | 2020-01-23 20:54 | PCM.PROG ---
Progress Note - Progress Note for Day of Date of Exam: 01/23/20 - Subjective Subjective: IS BEING TREATED FOR PNEUMONIA DUE TO COVID-19 AND NAUSEA/VOMITING. TODAY, SHE IS ALERT AND ORIENTED, LYING IN BED ON MORNING ROUNDS. SHE CONTINUES WITH COMPLAINTS OF WEAKNESS AND SHORTNESS OF BREATH. SHE REPORTS SLIGHT IMPROVEMENT IN SYMPTOMS SINCE ONE DAY PRIOR. SHE IS CURRENTLY U TILIZING OXYGEN VIA NASAL CANNULA AT 2 LITERS/MIN. SHE DENIES SIGNIFICANT IMPROVEMENT IN SYMPTOMS SINCE ADMISSION. ON EXAMINATION, HEART IS REGULAR IN RATE AND RHYTHM. BILATERAL LUNGS ARE NOTED WITH DIMINISHED LUNG SOUNDS THROUGHOUT. ABDOMEN IS ROUND, SOFT, AND NON-TENDER WITH NORMAL BOWEL SOUNDS NO MICHAEL IN ALL QUADRANTS. HER VITALS THIS MORNING ARE: 98.0-67-18-96%-147/65. LABS WERE OBTAINED. ABNORMAL LAB VALUES INCLUDE THE FOLLOWING: WBC 13.0, HGB 11.9, GLUCOSE 201, FERRITIN 333, AST 13, CRP 21.70, ALBUMIN 2.8. BLOOD AND URINE CULTURES ARE PENDING. CHEST XRAY REVEALED: Bibasilar patchy opacitie s/infiltrates unchanged from 01/22/2020. SHE IS CURRENTLY RECEIVING REMDESIVIR 100MG IV DAILY, LEVAQUIN 500MG IV DAILY, SOLU-MEDROL 40MG IV Q8H, ZOFRAN 4MG IV Q6H PRN, VSL #3 2 TABS DAILY, DUONEBS TID, PULMICORT NEBS BID, TRICOR 160MG PO DAILY, ZINC 220MG PO BID, ELIQUIS 2.5MG PO BID, CATAPRES 0.1MG PO HS, VITAMIN D 50,000 UNITS PO DAILY. TODAY, WE WILL OBTAIN AN ECHOCARDIOGRAM. OTHERWISE, WE PLAN TO FOLLOW UP WITH AM LABS, CHEST XRAY, AND CONTINUE TO MONITOR. - Past Medical Family Social History Past Med/Fam/Surg Hx: No changes since H&P Allergies: Allergies codeine Allergy (Verified 01/20/20 15:07) - Review of Systems ROS: No change since H&P - Vital Signs and I&O's Vital Signs: Temperature 97.7 F Pulse Rate [Apical] 68 Pulse Rate 69 Respiratory Rate 26 Blood Pressure [Left Arm] 169/78 Blood Pressure 129/68 O2 Sat by Pulse Oximetry 97 Intake and Output: Intake & Output 01/21/20 01/22/20 01/23/20 01/24/20 11:59 11:59 11:59 11:59 Intake Total 1945 305 / 3056 3316 / 3316 1245 / 1245 Balance 1945 3056 / 3056 3316 / 3316 1245 / 1245 - Physical Exam Oriented: Normal Eyes: Normal Ear: Normal Nose: Normal Throat: Normal Respiratory: Generalized, Diminished Cardiovascular: Normal : Normal Auscultation: Bowel Sounds: Normal Tenderness: Normal Skin: Normal Musculoskeletal: Normal Psychiatric: Normal Mood Description: Calm Affect: Normal Speech Pattern: Clear - Laboratory and Diagnostics Result Diagrams: 01/23/20 04:36 01/23/20 04:36 Labs: 01/20/20 15:12 Urine,Clean Catch Urine Culture - Final Escherichia Coli Escherichia Coli#2 01/20/20 15:55 Blood Blood Culture - Preliminary 01/20/20 15:49 Blood Blood Culture - Preliminary Laboratory WBC 13.0 X10^3/uL (3.6-10.0) H D 01/23/20 04:36 RBC 4.19 X10^6/uL (3.5-5.4) 01/23/20 04:36 Hgb 11.9 g/dL (12.0-16.0) L 01/23/20 04:36 Hct 36.7 % (36.0-47.0) 01/23/20 04:36 MCV 87.6 fL (80.0-100.0) 01/23/20 04:36 MCH 28.5 pg (27.0-34.0) 01/23/20 04:36 MCHC 32.6 g/dL (33.0-35.0) L 01/23/20 04:36 RDW 14.2 % (11.6-16.5) 01/23/20 04:36 Plt Count 286 X10^3/uL (150.0-450.0) 01/23/20 04:36 MPV 8.4 fL (7.4-11.0) 01/23/20 04:36 Neut % (Auto) 83.6 % (42.0-75.0) H 01/23/20 04:36 Lymph % (Auto) 9.9 % (21.0-51.0) L 01/23/20 04:36 [place] % (Auto) 6.4 % (0.0-13.0) 01/23/20 04:36 Eos % (Auto) 0.0 % (0.9-2.9) L 01/23/20 04:36 Baso % (Auto) 0.1 % (0.2-1.0) L 01/23/20 04:36 Neut # (Auto) 10.9 x10^3/uL (2.2-4.8) H 01/23/20 04:36 Lymph # (Auto) 1.3 X10^3/uL (1.3-2.9) 01/23/20 04:36 [place] # (Auto) 0.8 x10^3/uL (0.3-0.8) 01/23/20 04:36 Eos # (Auto) 0.0 x10^3/uL (0.0-0.2) 01/23/20 04:36 Baso # (Auto) 0.0 X10^3/uL (0.0-0.1) 01/23/20 04:36 Absolute Nucleated RBC 0.0 /100WBC 01/23/20 04:36 ESR 44 MM/HOUR (0-20) H 01/21/20 04:26 Sample Site Rr 01/21/20 04:08 ABG pH 7.450 (7.35-7.45) 01/21/20 04:08 ABG pCO2 43.0 mmHg (35.0-45.0) 01/21/20 04:08 ABG pO2 68.0 mmHg (80.0-100.0) L 01/21/20 04:08 ABG HCO3 29.9 mmol/L (22-26) H 01/21/20 04:08 ABG O2 Saturation 94.0 % (90-100) 01/21/20 04:08 ABG Base Excess 5.3 mmol/L (-2.0-2.0) H 01/21/20 04:08 Alberto Test Pos 01/21/20 04:08 A-a Gradient 78.0 mmHg 01/21/20 04:08 FiO2 28.0 01/21/20 04:08 Blood Gas Comments Danika well ae 01/21/20 04:08 Sodium 140 mmol/L (136-145) 01/23/20 04:36 Corrected Sodium 142 mmol/L (136-145) 01/23/20 04:36 Potassium 4.5 mmol/L (3.5-5.1) 01/23/20 04:36 Chloride 104 mmol/L (98-107) 01/23/20 04:36 Carbon Dioxide 31.0 mmol/L (21-32) 01/23/20 04:36 BUN 13 mg/dL (7-18) 01/23/20 04:36 Creatinine 0.75 mg/dL (0.55-1.02) 01/23/20 04:36 Est GFR (MDRD) Af Amer > 60 (>60) 01/23/20 04:36 Est GFR (MDRD) Non-Af > 60 (>60) 01/23/20 04:36 Glucose 201 mg/dL (65-99) H 01/23/20 04:36 Lactic Acid 0.7 mmol/L (0.4-2.0) 01/20/20 15:49 Calcium 8.8 mg/dL (8.5-10.1) 01/23/20 04:36 Corrected Calcium 9.8 mg/dL (8.5-10.1) 01/23/20 04:36 Magnesium 2.3 mg/dL (1.7-2.9) 01/22/20 04:53 Ferritin 333 ng/mL (8-252) H 01/23/20 04:36 Total Bilirubin 0.20 mg/dL (0.2-1.0) 01/23/20 04:36 AST 13 Units/L (15-37) L 01/23/20 04:36 ALT 25 Units/L (12-78) 01/23/20 04:36 Alkaline Phosphatase 54 Units/L (46-116) 01/23/20 04:36 C-Reactive Protein 21.70 mg/L (0-3.0) H 01/23/20 04:36 Total Protein 6.8 g/dL (6.4-8.2) 01/23/20 04:36 Albumin 2.8 g/dL (3.4-5.0) L 01/23/20 04:36 Globulin 4.0 g/dL (2.5-4.5) 01/23/20 04:36 Albumin/Globulin Ratio 0.7 Ratio (1.1-2.1) L 01/23/20 04:36 Amylase 45 Units/L (25-115) 01/20/20 13:30 Lipase 174 Units/L (73-393) 01/20/20 13:30 Specimen Type Clean catch urine 01/23/20 10:30 Urine Color Yellow (YELLOW) 01/23/20 10:30 Urine Appearance Clear (CLEAR) 01/23/20 10:30 Urine pH 6.0 (5.0 - 8.0) 01/23/20 10:30 Ur Specific [place] 1.020 (1.000-1.030) 01/23/20 10:30 Urine Protein 1+ (NEGATIVE) 01/23/20 10:30 Urine Glucose (UA) 4+ (NEGATIVE) 01/23/20 10:30 Urine Ketones Negative (NEGATIVE) 01/23/20 10:30 Urine Occult Blood 4+ (NEGATIVE) 01/23/20 10:30 Urine Nitrite Negative (NEGATIVE) 01/23/20 10:30 Urine Bilirubin Negative (NEGATIVE) 01/23/20 10:30 Urine Urobilinogen Normal (NORMAL) 01/23/20 10:30 Ur Leukocyte Esterase Negative (NEGATIVE) 01/23/20 10:30 Urine RBC 10-20 /HPF (0-3) A 01/23/20 10:30 Urine WBC None seen /HPF (0-5) 01/23/20 10:30 Ur Squamous Epith Cells Negative /HPF (NEGATIVE) 01/23/20 10:30 Urine Bacteria Trace /HPF (NEGATIVE) 01/23/20 10:30 Urine Mucus Rare /HPF (NEGATIVE) 01/23/20 10:30 Ur Culture Indicated? No/not indicated 01/23/20 10:30 - Plan (1) Pneumonia due to 2019 novel coronavirus Status: Acute Plan: SUPPLEMENTAL OXYGEN, REMDESIVIR 100MG IV DAILY, LEVAQUIN 500MG IV DAILY, SOLU-MEDROL 40MG IV Q8H, ZOFRAN 4MG IV Q6H PRN, VSL #3 2 TABS DAILY, DUONEBS TID, PULMICORT NEBS BID, TRICOR 160MG PO DAILY, ZINC 220MG PO BID, ELIQUIS 2.5MG PO BID, CATAPRES 0.1MG PO HS, VITAMIN D 50,000 UNITS PO DAILY. (2) Vomiting and diarrhea Status: Acute
[2020-01-23] MEDS ORDERED: COLACE CAP 100 MG PO SCH (21:00)
[2020-01-23] MEDS: CATAPRES TAB 0.1 MG PO SCH (21:33)
[2020-01-23] MEDS: NS 1000 ML 1,000 ML IV SCH ×2 (21:33)
[2020-01-23] MEDS: CRESTOR TAB 10 MG PO SCH (21:34)
[2020-01-24] MEDS: TORADOL 30 MG VIAL IVP PRN (03:30)
[2020-01-24 05:24] LABS: ABG BASE EXCESS 9.5 mmol/L (-2.0-2.0)
[2020-01-24 05:25] LABS: ABG ALLEN TEST POS; ABG HCO3 34.3 mmol/L (22-26)
[2020-01-24] MEDS: DUONEB 0.5 MG/3 MG (3 mL) NEB SCH (05:49)
[2020-01-24] MEDS: FORTAZ or TAZICEF VIAL INJ 1 G in NS 50 ML IV + SPIKE MINIBAG* 50 ML IV SCH (06:04)
[2020-01-24 06:05] LABS: ALANINE AMINOTRANSFERASE 25 Units/L (12-78); ALKALINE PHOSPHATASE 60 Units/L (46-116); ASPARTATE AMINO TRANSFERASE 15 Units/L (15-37); BLOOD UREA NITROGEN 11 mg/dL (7-18); CARBON DIOXIDE 30.9 mmol/L (21-32); CHLORIDE 101 mmol/L (98-107); COR CA(FOR HYPOALB) 9.8 mg/dL (8.5-10.1); COR NA(FOR HYPERGLY) 140 mmol/L (136-145); CREATININE 0.74 mg/dL (0.55-1.02); SODIUM 138 mmol/L (136-145); eGFR NON BLACK RACES > 60 (>60)
[2020-01-24] MEDS: SOLU-Medrol 40 MG VIAL IVP SCH (06:07)
[2020-01-24 06:08] LABS: BASOPHILS % (AUTO) 0.2 % (0.2-1.0); HEMOGLOBIN 12.7 g/dL (12.0-16.0); LYMPHOCYTES % (AUTO) 9.4 % (21.0-51.0); MEAN CORPUSCULAR HEMOGLOBIN 28.3 pg (27.0-34.0); MEAN CORPUSCULAR HGB CONC 32.4 g/dL (33.0-35.0); MEAN CORPUSCULAR VOLUME 87.3 fL (80.0-100.0); MONOCYTES # (AUTO) 0.6 x10^3/uL (0.3-0.8); MONOCYTES % (AUTO) 5.3 % (0.0-13.0); NEUTROPHILS # (AUTO) 9.3 x10^3/uL (2.2-4.8); NEUTROPHILS % (AUTO) 85.1 % (42.0-75.0); PLATELET COUNT 329 X10^3/uL (150.0-450.0); RED BLOOD COUNT 4.47 X10^6/uL (3.5-5.4); RED CELL DISTRIBUTION WIDTH 13.9 % (11.6-16.5); WHITE BLOOD COUNT 10.9 X10^3/uL (3.6-10.0)
[2020-01-24] MEDS: ZOFRAN INJ 4 MG VIAL IVP PRN (06:08)
[2020-01-24] MEDS: PYRIDIUM PO SCH ×2 (06:08→11:33)
--- NOTE | 2020-01-24 06:15 | RAD ---
[id number], SOBSTUDYCHEST, 1 [id number] view of the chestFINDINGSCardiac and mediastinal contours appear stable. Similar appearance of multifocal patchy bilateral opacities. No pleural effusion or pneumothorax.IMPRESSIONNo significant change.Electronically signed by: Bradly Palmer (Jan 24, 2020 06:13:58)
[2020-01-24] MEDS: TRICOR TAB 160 MG PO SCH (08:12)
[2020-01-24] MEDS: EFFEXOR XR 75 MG CAP 24-HR PO SCH (08:14)
[2020-01-24] MEDS: VSL#3 PO SCH (08:14)
[2020-01-24] MEDS: ELIQUIS PO SCH (08:14)
[2020-01-24] MEDS: OXYBUTYNIN CHLORIDE ER PO SCH (08:15)
[2020-01-24] MEDS: LEVAQUIN PREMIX IV 500 MG 500 MG/100 ML BAG IV SCH (08:15)
[2020-01-24] MEDS: ZESTRIL TAB 5 MG PO SCH (08:15)
[2020-01-24] MEDS: PATIENT'S HOME MEDICATION PO SCH (08:16)
[2020-01-24] MEDS: ZINC SULFATE PO SCH (08:16)
[2020-01-24] MEDS: VITAMIN D3 125 mcg (5,000 UNITS) PO SCH (08:16)
[2020-01-24] MEDS: MILK OF MAGNESIA PO SCH (08:18)
[2020-01-24] MEDS: PULMICORT NEB TX 0.5 MG NEB SCH (09:18)
[2020-01-24] MEDS: REMDESIVIR 100 MG in NS 250 ML IV 250 ML IV SCH (09:30)
[2020-01-24 12:08] VITALS: BP 153/70
== END 2020-01-24 12:25 | disposition home or self-care (01) | DRG 177 ==
LOC: ER 12:49 → ICU 15:42
PROVIDERS: ADMIT Family Medicine; ATTEND Internal Medicine